=== PATIENT | female | born 1935 | race Caucasian/White ===

== ENCOUNTER → 2017-05-05 | Outpatient (CLI) | payer MEDICARE, MEDICAID ==
[~2017-05-05] MED LIST: ACETAMINOPHEN500 M3 PO; AMIODARONE 200200 MG PO; AMLO5TAB PO; ATENOLOL25 MG PO; BISAC-EVAC10 MG PR; BUSPAR 10MG TAB10 MG PO; CHEWABLE ASPIRI81 MG PO; FAMOTIDINE 20MG20 MG PO; FLORANEX1 CT1 PO; FUROSEMIDE40 MG PO; HYDROXYZINE 25M25 MG PO; K-DUR 1010 MEQ PO; LEVOTHYROXINE0.05 MG NG; LEXAPRO 10 MG T10 MG PO; LIPITOR10 MG PO; LOPERAMIDE2 MG PO; METOCLOPRAMIDE10 M2 PO; MIRTAZAPINE15 M1 PO; NITROSTAT0.4 MG SL; ONDANSETRON4 MG/5 M2 FT; PANCRELIPASE PO; PHENADOZ25 MG PR; Sodium Bicarbo650 MG FT; TYLENOL ES500 M1 PO; ZESTRIL40 M1 PO; ZETIA10 MG PO
== END ==
LOC: LAB 14:08
DX: J11.1 Influenza due to unidentified influenza virus with other respiratory manifestations (principal)